=== PATIENT | female | born 1985 | race Hispanic/Latino ===

== ENCOUNTER 2019-09-18 12:23 | Outpatient (CLI) | payer BC ==
--- NOTE | 2019-09-18 14:35 | ULT ---
PELVIC ULTRASOUND: Abnormal uterine bleeding while ovulating. Patient unable to get . TECHNIQUE: Real-time imaging of the pelvis was obtained both transabdominally as well as with an endovaginal pro be. FINDINGS: It shows the uterus measuring 3.7 x 4 x 8.2 cm. Endometrium is in the 8 mm range. There are some small follicles involving the adnexa. On Doppler evaluation with spectral analysis, normal flow is shown to both ovaries. No significant free fluid. IMPRESSION: Unremarkable pelvic ultrasound. POS: [id number]
== END 2019-09-18 12:24 | disposition home or self-care (01) ==
LOC: BICULT 12:23
PROVIDERS: ATTEND Obstetrics & Gynecology
DX: N93.9 Abnormal uterine and vaginal bleeding, unspecified (principal); N92.1 Excessive and frequent menstruation with irregular cycle; Z30.09 Encounter for other general counseling and advice on contraception
CPT/HCPCS: 76856

== ENCOUNTER 2023-02-14 07:51 | Outpatient (CLI) | payer BC | END 2023-02-14 07:52 | disposition home or self-care (01) | LOC: ULT 07:51 | PROVIDERS: ATTEND Family Medicine | DX: R10.13 Epigastric pain (principal); K80.20 Calculus of gallbladder without cholecystitis without obstruction | CPT/HCPCS: 76705 ==